=== PATIENT | female | born 1960 | race African-American/Black ===

== ENCOUNTER 2021-05-08 01:59 | Day surgery (SDC) | payer OTHER, SELFPAY ==
[2021-04-20 10:26] VITALS: BMI 36.1
[2021-05-08 07:55] VITALS: BMI 35.9
[2021-05-08] MEDS: LACTATED RINGERS 1,000 ML 150 ML IV CONT (08:03)
[2021-05-08 08:11] VITALS: BP 137/104; PULSE 92; RESP 18; TEMP 36.1; O2SAT 99
--- NOTE | 2021-05-08 08:43 | WPDANESEPPF ---
Anes - Initial Pre Proc Eval Procedure: Operation Date: 05/08/21 09:00 Proposed Procedures p Esophagogastroduodenoscopy & Screening Colonoscopy - Stanisalw Tate MD Date/Time: 05/08/21 08:43 Surgeon: Stanislaw Tate MD Pre Op Diagnosis: hx of colon polyps, dysphagia Patient Data Age: 60 Gender: F Height: 1.63 m Weight: 94.9 kg Last Vital Signs Temp 96.9 F L 05/08/21 08:11 Pulse 92 05/08/21 08:11 Resp 18 05/08/21 08:11 BP 137/104 H 05/08/21 08:11 Pulse Ox 99 05/08/21 08:11 Allergies Allergy/AdvReac Type Severity Reaction Status Date / Time No Known Allergies Allergy Verified 05/08/21 07:47 Home Medications Medication Instructions Recorded Confirmed Type acyclovir 200 mg capsule 800 mg PO DAILY cap 04/06/21 05/08/21 History albuterol sulfate 90 mcg/actuation 1 puff INHALATION Q4H PRN 04/06/21 05/08/21 History aerosol inhaler aspirin 81 mg tablet,delayed 81 mg PO DAILY 04/06/21 05/08/21 History release atorvastatin 10 mg tablet 20 mg PO DAILY tablet 04/06/21 05/08/21 History cholecalciferol (vitamin D3) 10 10 mcg PO DAILY 04/06/21 05/08/21 History mcg (400 unit) capsule hydrochlorothiazide 12.5 mg tablet 25 mg PO DAILY tablet 04/06/21 05/08/21 History ibuprofen 800 mg tablet 800 mg PO Q6H #120 tablet 04/06/21 05/08/21 Rx losartan 25 mg tablet 25 mg PO DAILY 04/06/21 05/08/21 History tumeric 100 mg-torrey 150 mg-olive 1 cap PO DAILY 04/06/21 05/08/21 History 50 mg-oreg 150 mg-caprylate capsule Patient hx anesthesia problems: none Family hx anesthesia problems: none PMFSH Past Medical History Medical History Asthma BMI 36.0-36.9,adult Dysphagia Facial paralysis Facial paralysis on left side Herpes HTN (hypertension) Hyperlipidemia Low back pain Personal history of colonic polyps Seasonal allergies Stroke Tobacco abuse Vitamin D deficiency Surgical History Surgical History History of gallstones 1996 Hx of section 1995 Family History Family History Father No problems noted. Mother No problems noted. Grandparent , Maternal Grandmother Diabetes mellitus Sibling Leukemia Social History Social History Smoking status: Current every day smoker Tobacco type: e-cigarettes/vaping Second hand tobacco smoke exposure: Yes Additional smoking assessment comments: FORMER [employer] Alcohol intake: current Drinks per week: 7 Alcohol use details: socially Substance use: never Substance use type: does not use Living arrangements: with family Gender identity (if verbalized by the patient): Female Spiritual care concerns: No Agree to blood products: No Anes - Eval Final PreProcedure Day of Procedure 05/08/21 08:43 Patient weight: obese Heart: regular rate and rhythm Lungs: clear to auscultation Airway: Mallampati scale class II Neurological: alert and oriented Last oral intake: >/= 8 hours ASA classification: III Emergent: no Anesthetic plan: proceed Anesthesia type and monitoring: general GIVS and standard monitoring Informed Consent: The patient's anesthetic plan and its attendant risks and benefits were discussed with the patient/family/POA. Questions were solicited and answers provided to the satisfaction of the patient/family/POA.
--- NOTE | 2021-05-08 08:58 | PM.HPGS ---
History of Present Illness History of Present Illness Consent: Risks, benefits, and alternatives have been discussed and questions answered. Patient agrees to proceed with procedure. Chief complaint: hx of colon polyps, dysphagia Narrative: Margarita Paredes is a 60 year old female with been having difficulty with swallowing due. Often she will feel as though she is going to choke on taking her pills. She has more difficulty with liquids such as water, she needs to think about it to prevent it from going down the wrong way. She does not have the sensation that food is stuck substernally. This has been going on for several years. 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 She denies weight loss. She has had polyps removed about 15 years ago when she had her 1st screening colonoscopy Review of Systems Review of Systems: All systems reviewed & are unremarkable except as noted in HPI and below PMFSH Past Medical History Medical History Asthma BMI 36.0-36.9,adult Dysphagia Facial paralysis Facial paralysis on left side Herpes HTN (hypertension) Hyperlipidemia Low back pain Personal history of colonic polyps Seasonal allergies Stroke Tobacco abuse Vitamin D deficiency Surgical History Surgical History History of gallstones 1996 Hx of section 1995 Family History Family History Father No problems noted. Mother No problems noted. Grandparent , Maternal Grandmother Diabetes mellitus Sibling Leukemia Social History Social History Smoking status: Current every day smoker Tobacco type: e-cigarettes/vaping Second hand tobacco smoke exposure: Yes Additional smoking assessment comments: FORMER [employer] Alcohol intake: current Drinks per week: 7 Alcohol use details: socially Substance use: never Substance use type: does not use Living arrangements: with family Gender identity (if verbalized by the patient): Female Spiritual care concerns: No Agree to blood products: No Meds Home Medications and Allergies Home Medications Medication Instructions Recorded Confirmed Type acyclovir 200 mg capsule 800 mg PO DAILY cap 04/06/21 05/08/21 History albuterol sulfate 90 mcg/actuation 1 puff INHALATION Q4H PRN 04/06/21 05/08/21 History aerosol inhaler aspirin 81 mg tablet,delayed 81 mg PO DAILY 04/06/21 05/08/21 History release atorvastatin 10 mg tablet 20 mg PO DAILY tablet 04/06/21 05/08/21 History cholecalciferol (vitamin D3) 10 10 mcg PO DAILY 04/06/21 05/08/21 History mcg (400 unit) capsule hydrochlorothiazide 12.5 mg tablet 25 mg PO DAILY tablet 04/06/21 05/08/21 History ibuprofen 800 mg tablet 800 mg PO Q6H #120 tablet 04/06/21 05/08/21 Rx losartan 25 mg tablet 25 mg PO DAILY 04/06/21 05/08/21 History tumeric 100 mg-torrey 150 mg-olive 1 cap PO DAILY 04/06/21 05/08/21 History 50 mg-oreg 150 mg-caprylate capsule Allergies Allergy/AdvReac Type Severity Reaction Status Date / Time No Known Allergies Allergy Verified 05/08/21 07:47 Vital Signs Vital Signs - 24 hr 05/08/21 08:11 Temperature 36.1 C L Pulse Rate 92 Respiratory Rate 18 Blood Pressure 137/104 H Pulse Oximetry 99 Exam Resp: Auscultation: clear to auscultation bilaterally Cardio: Rate: regular rate Rhythm: regular rhythm GI: GI Palp: Yes Soft to palpation and No Tenderness to palpation present (GI) Assessment and Plan Assessment and plan (1) Dysphagia: Code(s): R13.10 - Dysphagia, unspecified Status: Acute Assessment and Plan: EGD with possible biopsy or dilatation or cautery. (2) Colon cancer screening: Code(s): Z12.11 - En
[2021-05-08 09:43] VITALS: BP 120/67; PULSE 86; RESP 22; O2SAT 100
[2021-05-08 09:53] VITALS: BP 116/92; PULSE 93; RESP 28; O2SAT 96
[2021-05-08 10:03] VITALS: BP 134/89; PULSE 82; RESP 25; O2SAT 95
== END 2021-05-08 10:27 | disposition home or self-care (01) ==
PROVIDERS: PCP Nurse Practitioner Family; Visit Provider Internal Medicine Gastroenterology
PROC: 0DJ08ZZ Inspection of Upper Intestinal Tract, Via Natural or Artificial Opening Endoscopic (ICD-10-PCS; CPT 43235; principal; 2021-05-08 09:00)
DX: Z12.11 Encounter for screening for malignant neoplasm of colon (principal); Z86.010 Personal history of colon polyps; K57.30 Diverticulosis of large intestine without perforation or abscess without bleeding; K25.9 Gastric ulcer, unspecified as acute or chronic, without hemorrhage or perforation; K64.8 Other hemorrhoids; R13.12 Dysphagia, oropharyngeal phase; K20.80 Other esophagitis without bleeding; J45.909 Unspecified asthma, uncomplicated; Z86.73 Personal history of transient ischemic attack (TIA), and cerebral infarction without residual deficits; G51.0 Bell's palsy; I10 Essential (primary) hypertension; E78.5 Hyperlipidemia, unspecified; E55.9 Vitamin D deficiency, unspecified; F17.290 Nicotine dependence, other tobacco product, uncomplicated; Z79.82 Long term (current) use of aspirin; R13.10 Dysphagia, unspecified; Z79.51 Long term (current) use of inhaled steroids; E66.8 Other obesity; Z68.35 Body mass index [BMI] 35.0-35.9, adult
CPT/HCPCS: 45378; 43239; 87081; 88305; J2704; J7120

== ENCOUNTER → 2021-07-13 14:54 | Outpatient (CLI) | payer OTHER, SELFPAY ==
--- NOTE | ~2021-07-13 | XR_ITS ---
XR ankle RT 2V DATE: 07/13/2021 15:06 INDICATION: Right ankle and foot pain TECHNIQUE: AP and lateral views COMPARISON: None FINDINGS: Plantar and posterior calcaneal enthesopathy. There is moderate lateral soft tissue swelling of the ankle. No fracture or dislocation of the ankle or disruption of the ankle mortise is detected. No periosteal reaction or bone destruction. IMPRESSION: Lateral ankle soft tissue swelling No fracture or dislocation is detected Plantar and posterior calcaneal enthesopathy Reviewed, dictated and finalized at location A.
== END ==
PROVIDERS: PCP Nurse Practitioner Family; Visit Provider Nurse Practitioner Family
DX: M25.571 Pain in right ankle and joints of right foot (principal); M79.89 Other specified soft tissue disorders; M77.31 Calcaneal spur, right foot
CPT/HCPCS: 73600

== ENCOUNTER 2021-11-27 13:03 | Emergency (ER) | payer OTHER, SELFPAY ==
--- NOTE | ~2021-11-27 | XR_ITS ---
EXAMINATION: XR foot RT min 3V DATE: 11/27/2021 13:50 INDICATION: Right foot pain and ankle swelling. TECHNIQUE: 4 views of right foot were obtained. COMPARISON: None. FINDINGS: There is moderate hallux valgus. No fracture. There is mild osteoarthritis of first metatar sophalangeal joint and some of the midfoot joints and interphalangeal joints. There are periarticular calcifications at fourth distal interphalangeal joint. There are enthesophytes at the posterior and plantar aspects of calcaneal tuberosity. IMPRESSION: 1. Polyarticular osteoarthritis. 2. Moderate hallux valgus. Reviewed, dictated and finalized at location A. ION CONTROL COORDINATOR
--- NOTE | ~2021-11-27 | XR_ITS ---
EXAMINATION: XR ankle RT min 3V DATE: 11/27/2021 13:50 INDICATION: Right foot pain and ankle swelling. TECHNIQUE: 4 views of right ankle were obtained. COMPARISON: None. FINDINGS: Bone alignment is normal. No fracture. There is mild osteoarthritis of the ankle joint and midfoot. There are enthesophytes at the posterior and plantar aspects of calcaneal tuberosity. Ankle soft tissue swelling is noted. IMPRESSION: 1. Polyarticular osteoarthritis. Reviewed, dictated and finalized at location A. RINARY ANATOMIST
--- NOTE | ~2021-11-27 | US_ITS ---
EXAMINATION: US venous doppler LE RT DATE: 11/27/2021 14:03 INDICATION: Right lower limb swelling. TECHNIQUE: Grayscale ultrasound images without and with compression and Doppler ultrasound images of the right lower extremity veins were obtained. COMPARISON: None. FINDINGS: The visualized portions of right common femoral vein, profunda (deep) femoral vein, femoral vein, pop liteal vein, peroneal veins, posterior tibial veins, and greater saphenous vein outflow are patent. IMPRESSION: 1. No deep venous thrombosis. Reviewed, dictated and finalized at location A. ATTENDANT
[2021-11-27 13:06] VITALS: BP 137/89; PULSE 110; RESP 18; TEMP 36.4; O2SAT 100
--- NOTE | 2021-11-27 14:18 | PC.NURSE ---
Pt assisted to bathroom by wheelchair, pt is observed to have difficult and painful ambulation, pt denies using wheelchair or walker as an assitive device but she is needing to use wheelchair at this time.
[2021-11-27 14:30] LABS: Anion Gap 7 mmol/L (8-16); Blood Urea Nitrogen 11 mg/dL (7-17); Calcium 9.6 mg/dL (8.4-10.2); Carbon Dioxide 33 mmol/L (22-30); Chloride 100 mmol/L (98-107); Estimated CRCL calculation 65 ml/min; Estimated Glomerular Filt Rate > 60; Glucose 135 mg/dL (65-110); Potassium 3.3 mmol/L (3.4-5.0); Sodium 140 mmol/L (137-145); Uric Acid 7.8 mg/dL (2.5-7.5)
--- NOTE | 2021-11-27 15:44 | ED.GENADULT ---
HPI - General Adult General Chief complaint: Extremity Problem,Nontraumatic Stated complaint: foot pain Time Seen by Provider: 11/27/21 13:27 History of Present Illness HPI narrative: Patient is a 61-year-old female who presents ER with right foot and ankle pain. Ongoing since 11/16/2021. Has known bunion to the right toe pain and swelling. No redness or drainage. No chest pain or shortness of breath. Has swelling going into her ankle. No known trauma. Pain is worse with walking. Also worse with wearing shoe. Related Data Home Medications Medication Instructions Recorded Confirmed albuterol sulfate 90 mcg/actuation 1 puff INHALATION Q4H PRN 04/06/21 07/13/21 aerosol inhaler aspirin 81 mg tablet,delayed 81 mg PO DAILY 04/06/21 07/13/21 release cholecalciferol (vitamin D3) 10 10 mcg PO DAILY 04/06/21 07/13/21 mcg (400 unit) capsule losartan 25 mg tablet 25 mg PO DAILY 04/06/21 07/13/21 tumeric 100 mg-torrey 150 mg-olive 1 cap PO DAILY 04/06/21 07/13/21 50 mg-oreg 150 mg-caprylate capsule Allergies Allergy/AdvReac Type Severity Reaction Status Date / Time No Known Allergies Allergy Verified 05/08/21 07:47 Review of Systems Review of Systems: All systems reviewed & are unremarkable except as noted in HPI and below Constitutional: Constitutional: Denies chills, Denies fever(s) and Denies weakness Cardiovascular: Cardiovascular: Denies chest pain, Denies rapid heart rate and Denies radiating jaw, neck or arm pain Respiratory: Respiratory: Denies cough and Denies dyspnea Musculoskeletal: Musculoskeletal: Reports arthralgias and Reports joint swelling Integumentary/Breasts: Skin/Breast: Denies pruritus, Denies erythema and Denies rash Neurologic: Denies headache(s), Denies focal weakness and Denies numbness [facility] Past Medical History Medical History (Updated 11/27/21 @ 15:48 by Siva Johnson MD) Asthma BMI 36.0-36.9,adult Dysphagia Edema of right ankle Facial paralysis Facial paralysis on left side Herpes HTN (hypertension) Hyperlipidemia Joint pain Low back pain Personal history of colonic polyps Right ankle pain Seasonal allergies Stroke Tobacco abuse Vitamin D deficiency Surgical History Surgical History History of gallstones 1996 Hx of section 1995 Family History Family History Father No problems noted. Mother No problems noted. Grandparent , Maternal Grandmother Diabetes mellitus Sibling Leukemia Social History Social History Smoking status: Former smoker (currently vaping) Tobacco type: e-cigarettes/vaping Second hand tobacco smoke exposure: Yes Additional smoking assessment comments: FORMER [employer] Alcohol intake: current Drinks per week: 7 Alcohol use details: socially Substance use: never Substance use type: does not use Gender identity (if verbalized by the patient): Female Spiritual care concerns: No Agree to blood products: No Exam Narrative: GENERAL: Well-appearing, well-nourished, and in no acute distress. HEAD: Normocephalic, atraumatic. EXTREMITIES: Tender bunion right foot at the first MTP. No redness or fluctuance. Edema of the foot going into the ankle with tenderness at bilateral malleoli. Negative Homans' sign on the right. 1+ edema on the right. Unremarkable left lower extremity examination. SKIN: Warm, dry, no rash. NEURO: Alert and oriented x3. PSYCH: Normal mood and affect. Course Course Emergency Course: May have had a gout flare that patient is recovering from. No evidence of fracture or DVT. Discharge with anti-inflammatories. [place] as needed for breakthrough pain. Vital Signs Vital signs: Vital Signs Temperature 97.6 F 11/27/21 13:06 Pulse Rate 110 H
[2021-11-27 16:18] VITALS: BP 132/82; PULSE 89; RESP 18; O2SAT 100
== END 2021-11-27 16:21 | disposition home or self-care (01) ==
PROVIDERS: Emergency Provider Emergency Medicine; PCP Nurse Practitioner Family
DX: M20.11 Hallux valgus (acquired), right foot (principal); M21.611 Bunion of right foot; M19.071 Primary osteoarthritis, right ankle and foot; J45.909 Unspecified asthma, uncomplicated; I10 Essential (primary) hypertension; E78.5 Hyperlipidemia, unspecified; Z86.73 Personal history of transient ischemic attack (TIA), and cerebral infarction without residual deficits; E55.9 Vitamin D deficiency, unspecified; Z79.82 Long term (current) use of aspirin; F17.290 Nicotine dependence, other tobacco product, uncomplicated
CPT/HCPCS: 36415; 73610; 73630; 80048; 84550; 93971; 99284

== ENCOUNTER 2022-03-02 08:38 | Outpatient (CLI) | payer OTHER, SELFPAY ==
--- NOTE | ~2022-03-02 | XR_ITS ---
EXAMINATION: XR barium swallow modified DATE: 03/02/2022 09:21 INDICATION: Dysphagia TECHNIQUE: Modified barium esophagram was performed by myself to administered fluoroscopy, in conjun ction with speech pathologist who administered barium in varying consistencies as per speech patholog ist documentation. This was recorded on tape. A single fluoroscopic spot image was recorded. The DAP for this procedure was 2.0 Gycm2. Fluoroscopy exposure time was 1.6 minutes. FINDINGS: Oral stage: Adequate function. Pharyngeal phase: Adequate function. Laryngeal penetration: None. Aspiration: None. Laryngeal sensitivity: Not applicable. IMPRESSION: Unremarkable modified barium swallow. Please refer to speech pathologist findings and spe [facility] feeding recommendations. Reviewed, dictated and finalized at location A. IMPRESSION: Unremarkable modified barium swallow. Please refer to speech pathol ogist findings and specific feeding recommendations.
--- NOTE | 2022-03-03 10:38 | STOPEVAL ---
MODIFIED BARIUM SWALLOW EVALUATION: Thank you for referring Margarita Paredes to [facility] [place] Attending Provider: Stanislwa Tate MD FAX: [phone] Modified Barium Swallow Evaluation Recent Swallowing History Reports Dysphagia Yes: food gets caught in throat & chest but it varies & cuts off air History of Dysphagia No History of Related Medical Diagnosis CVA Other Related History reported CVA during Other Factors Impacting Dysphagia None Reported Difficult Consistencies Solids Intake Method Prior to Swallow Oral Evaluation Diet Prior to Swallow Evaluation Regular, Level 7 Liquid Consistency Prior to Swallow Thin (0) Evaluation Consistency Barium Pill Oral Preparatory Symptoms None Oral Phase Symptoms None Pharyngeal Phase Symptoms None Severity of Vallecular Residue None - 0% No Residue Severity of Pyriform Sinus Residue None - 0% No Residue 8 Point Laryngeal Penetration-Aspiration Material Does Not Enter Airway Scale Cervical/Esophageal Symptoms None Solid Consistency Method of Presentation Spoon Oral Preparatory Symptoms None Oral Phase Symptoms None Pharyngeal Phase Symptoms None Severity of Vallecular Residue None - 0% No Residue Severity of Pyriform Sinus Residue None - 0% No Residue 8 Point Laryngeal Penetration-Aspiration Material Does Not Enter Airway Scale Cervical/Esophageal Symptoms None Pureed Consistency Method of Presentation Spoon Oral Preparatory Symptoms None Oral Phase Symptoms None Pharyngeal Phase Symptoms None Severity of Vallecular Residue None - 0% No Residue Severity of Pyriform Sinus Residue None - 0% No Residue 8 Point Laryngeal Penetration-Aspiration Material Does Not Enter Airway Scale Cervical/Esophageal Symptoms None Thin Uncontrolled 2 Method of Presentation Straw Oral Preparatory Symptoms None Oral Phase Symptoms None Pharyngeal Phase Symptoms None Severity of Vallecular Residue None - 0% No Residue Severity of Pyriform Sinus Residue None - 0% No Residue 8 Point Laryngeal Penetration-Aspiration Material Does Not Enter Airway Scale Cervical/Esophageal Symptoms None Thin Uncontrolled 1 Method of Presentation Cup Oral Preparatory Symptoms None Oral Phase Symptoms None Pharyngeal Phase Symptoms None Severity of Vallecular Residue None - 0% No Residue Severity of Pyriform Sinus Residue None - 0% No Residue 8 Point Laryngeal Penetration-Aspiration Material Does Not Enter Airway Scale Cervical/Esophageal Symptoms None Thin 5 mL Method of Presentation Spoon Oral Preparatory Symptoms None
== END 2022-03-02 08:39 | disposition home or self-care (01) ==
PROVIDERS: PCP Nurse Practitioner Family; Visit Provider Internal Medicine Gastroenterology
DX: R13.10 Dysphagia, unspecified (principal)
CPT/HCPCS: 92611

== ENCOUNTER 2022-04-02 01:24 | Day surgery (SDC) | payer OTHER, SELFPAY ==
[2022-03-15 16:09] VITALS: BMI 36.3
--- NOTE | 2022-04-02 10:55 | PM.HPGS ---
History of Present Illness History of Present Illness Consent: Risks, benefits, and alternatives have been discussed and questions answered. Patient agrees to proceed with procedure. Chief complaint: gastric ulcer Narrative: Margarita Paredes is a 61 year old female Who was found to have multiple cratered gastric ulcers last year. She has been on pantoprazole since then. She is just now coming in for her follow-up EGD to assess healing. she also has had dysphagia but a barium swallow study was negative. she only has difficulty swallowing liquids. She denies using ice in fact always drinks her liquids at room temperature. Review of Systems Review of Systems: All systems reviewed & are unremarkable except as noted in HPI and below PMFSH Past Medical History Medical History Asthma BMI 36.0-36.9,adult BMI 37.0-37.9, adult Dysphagia Edema of right ankle Facial paralysis Facial paralysis on left side Gout Herpes HTN (hypertension) Hyperlipidemia Joint pain Low back pain Personal history of colonic polyps Right ankle pain Seasonal allergies Stroke Tobacco abuse Vitamin D deficiency Surgical History Surgical History History of gallstones 1996 Hx of section 1995 Family History Family History Father No problems noted. Mother No problems noted. Grandparent , Maternal Grandmother Diabetes mellitus Sibling Leukemia Social History Social History Smoking status: Current every day smoker Tobacco type: cigarettes and e-cigarettes/vaping Second hand tobacco smoke exposure: Yes Additional smoking assessment comments: FORMER [employer] Alcohol intake: current Drinks per week: 7 Alcohol use details: socially Substance use: never Substance use type: does not use Living arrangements: with family Gender identity (if verbalized by the patient): Female Spiritual care concerns: No Agree to blood products: No Meds Home Medications and Allergies Home Medications Medication Instructions Recorded Confirmed Type albuterol sulfate 90 mcg/actuation 1 puff inhalation Q4H PRN 04/06/21 03/16/22 History aerosol inhaler Shortness Of Breath cholecalciferol (vitamin D3) 10 10 mcg PO DAILY 04/06/21 03/16/22 History mcg (400 unit) capsule ibuprofen 800 mg tablet 800 mg PO Q6H #120 tabs 04/06/21 03/16/22 Rx loratadine 10 mg tablet 10 mg PO DAILY #30 tabs 09/14/21 03/16/22 Rx atorvastatin 20 mg tablet 20 mg PO DAILY #30 tabs 09/15/21 03/16/22 Rx acyclovir 400 mg tablet 400 mg PO BID #60 tabs 11/09/21 03/16/22 Rx hydrocodone 5 mg-acetaminophen 325 1 tablet PO Q6H PRN pain #10 tabs 11/27/21 03/16/22 Rx mg tablet allopurinol 100 mg tablet 100 mg PO DAILY #30 tabs 12/14/21 03/16/22 Rx colchicine 0.6 mg tablet See Rx Instructions .Route 12/14/21 03/16/22 Rx .COMPLEX PRN gout flare #60 tabs losartan 25 mg tablet 25 mg PO DAILY #30 tabs 12/14/21 03/16/22 Rx pantoprazole 40 mg tablet,delayed See Rx Instructions .Route 02/23/22 03/16/22 Rx release .COMPLEX #30 tabs Allergies Allergy/AdvReac Type Severity Reaction Status Date / Time No Known Allergies Allergy Verified 04/02/22 11:45 Exam Const: General: alert Orientation/consciousness: patient oriented x3 Resp: Auscultation: clear to auscultation bilaterally Cardio: Rhythm: regular rhythm GI: GI Palp: Yes Soft to palpation and No Tenderness to palpation present (GI) Neuro: General: patient oriented x3 Assessment and Plan Assessment and plan (1) Gastric ulcer: Code(s): K25.9 - Gastric ulcer, unspecified as acute or chronic, without hemorrhage or perforation Status: Acute Assessment and Plan: EGD with possible biopsy or dilata
[2022-04-02 11:47] VITALS: BP 137/95; PULSE 108; RESP 18; TEMP 36.2; O2SAT 97
--- NOTE | 2022-04-02 11:56 | WPDANESEPPF ---
Anes - Initial Pre Proc Eval Procedure: Operation Date: 04/02/22 13:00 Proposed Procedures p Esophagogastroduodenoscopy - Stanislaw Tate MD Date/Time: 04/02/22 11:56 Surgeon: Stanislaw Tate MD Pre Op Diagnosis: gastric ulcer Patient Data Age: 61 Gender: F Height: 1.63 m Weight: 97.4 kg Last Vital Signs Temp 97.2 F L 04/02/22 11:47 Pulse 108 H 04/02/22 11:47 Resp 18 04/02/22 11:47 BP 137/95 H 04/02/22 11:47 Pulse Ox 97 04/02/22 11:47 O2 Del Method Room Air 04/02/22 11:47 Allergies Allergy/AdvReac Type Severity Reaction Status Date / Time No Known Allergies Allergy Verified 04/02/22 11:45 Home Medications Medication Instructions Recorded Confirmed Type albuterol sulfate 90 mcg/actuation 1 puff inhalation Q4H PRN 04/06/21 03/16/22 History aerosol inhaler Shortness Of Breath cholecalciferol (vitamin D3) 10 10 mcg PO DAILY 04/06/21 03/16/22 History mcg (400 unit) capsule ibuprofen 800 mg tablet 800 mg PO Q6H #120 tabs 04/06/21 03/16/22 Rx loratadine 10 mg tablet 10 mg PO DAILY #30 tabs 09/14/21 03/16/22 Rx atorvastatin 20 mg tablet 20 mg PO DAILY #30 tabs 09/15/21 03/16/22 Rx acyclovir 400 mg tablet 400 mg PO BID #60 tabs 11/09/21 03/16/22 Rx hydrocodone 5 mg-acetaminophen 325 1 tablet PO Q6H PRN pain #10 tabs 11/27/21 03/16/22 Rx mg tablet allopurinol 100 mg tablet 100 mg PO DAILY #30 tabs 12/14/21 03/16/22 Rx colchicine 0.6 mg tablet See Rx Instructions .Route 12/14/21 03/16/22 Rx .COMPLEX PRN gout flare #60 tabs losartan 25 mg tablet 25 mg PO DAILY #30 tabs 12/14/21 03/16/22 Rx pantoprazole 40 mg tablet,delayed See Rx Instructions .Route 02/23/22 03/16/22 Rx release .COMPLEX #30 tabs Patient hx anesthesia problems: none Family hx anesthesia problems: none Results Review: All pre-operative results and documents have been reviewed as part of the pre-operative evaluation. [facility] Past Medical History Medical History Asthma BMI 36.0-36.9,adult BMI 37.0-37.9, adult Dysphagia Edema of right ankle Facial paralysis Facial paralysis on left side Gout Herpes HTN (hypertension) Hyperlipidemia Joint pain Low back pain Personal history of colonic polyps Right ankle pain Seasonal allergies Stroke Tobacco abuse Vitamin D deficiency Surgical History Surgical History History of gallstones 1996 Hx of section 1995 Family History Family History Father No problems noted. Mother No problems noted. Grandparent , Maternal Grandmother Diabetes mellitus Sibling Leukemia Social History Social History Smoking status: Current every day smoker Tobacco type: cigarettes and e-cigarettes/vaping Second hand tobacco smoke exposure: Yes Additional smoking assessment comments: FORMER [employer] Alcohol intake: current Drinks per week: 7 Alcohol use details: socially Substance use: never Substance use type: does not use Living arrangements: with family Gender identity (if verbalized by the patient): Female Spiritual care concerns: No Agree to blood products: No Anes - Eval Final PreProcedure Day of Procedure 04/02/22 11:56 Patient weight: obese Heart: regular rate and rhythm Lungs: clear to auscultation Neurological: alert and oriented Last oral intake: >/= 8 hours Emergent: no Anesthetic plan: proceed Anesthesia type and monitoring: general and standard monitoring Results Review: All pre-operative results and documents have been reviewed as part of the pre-operative evaluation. Informed Consent: The patient's anesthetic plan and its attendant risks and benefits were discussed with the patient/family/POA. Questions were solicited and answers pr
[2022-04-02 11:58] LABS: Glucose Point of Care 116 mg/dl (65-105)
[2022-04-02] MEDS: LACTATED RINGERS 1,000 ML 150 ML IV CONT (11:59)
[2022-04-02 12:11] VITALS: BP 131/90; PULSE 95; RESP 21; O2SAT 99
[2022-04-02 12:21] VITALS: BP 131/95; PULSE 88; RESP 25; O2SAT 100
[2022-04-02 12:31] VITALS: BP 138/97; PULSE 86; RESP 27; O2SAT 98
== END 2022-04-02 12:38 | disposition home or self-care (01) ==
PROVIDERS: PCP Nurse Practitioner Family; Visit Provider Internal Medicine Gastroenterology
PROC: 0DJ08ZZ Inspection of Upper Intestinal Tract, Via Natural or Artificial Opening Endoscopic (ICD-10-PCS; CPT 43235; principal; 2022-04-02 13:00)
DX: Z09 Encounter for follow-up examination after completed treatment for conditions other than malignant neoplasm (principal); Z87.11 Personal history of peptic ulcer disease; K21.9 Gastro-esophageal reflux disease without esophagitis; Z87.898 Personal history of other specified conditions; I10 Essential (primary) hypertension; J45.909 Unspecified asthma, uncomplicated; R13.10 Dysphagia, unspecified; R60.0 Localized edema; M10.9 Gout, unspecified; E55.9 Vitamin D deficiency, unspecified; E78.5 Hyperlipidemia, unspecified; Z86.73 Personal history of transient ischemic attack (TIA), and cerebral infarction without residual deficits; F17.290 Nicotine dependence, other tobacco product, uncomplicated; E66.9 Obesity, unspecified; Z68.36 Body mass index [BMI] 36.0-36.9, adult; Z79.51 Long term (current) use of inhaled steroids
CPT/HCPCS: 43235; 82948; J2704; J7120

== ENCOUNTER 2022-05-14 07:26 | Outpatient (CLI) | payer OTHER, SELFPAY ==
--- NOTE | 2022-06-05 23:49 | WPDHOMESLEEP ---
Sleep Study - Home Unattended Date of Study: 05/14/22 Ordering Provider: Bee Pratt NP Interpreting Provider: Tammie Zavala, DO Home Sleep Study Type: Watch PAT Height: 1.63 m Weight: 98.883 kg Body Mass Index: 37.4 Neck Circumference (inches): 16 [place]: 2 Reason for Sleep Study Snoring Sleep History The patient is a 61-year-old female with hypertension, hyperlipidemia, gout, seasonal allergies, history of stroke (1987) and history of tobacco abuse that had a sleep study ordered by her primary care for evaluation of sleep apnea. 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 The patient denies awakening from sleep short of breath. She denies awakening at night with heartburn, belching or cough. She constantly snores loud enough that others complain. She occasionally has trouble sleeping when she has a cold. She denies having breathing problems at night observed by herself or others. She occasionally sweats excessively at night. She denies having heart palpitations or irregular heartbeats during the night. She denies falling asleep during the day and while driving. She denies sleep paralysis, cataplexy and hypnagogic / hypnopompic hallucinations. She denies having trouble at school or work due to sleepiness. She rarely feels afraid of going to sleep. She rarely has nightmares. She occasionally remembers her dreams. She denies having thoughts racing through her mind. she denies feeling sad or depressed. She rarely has anxiety. She denies having muscular tension. She rarely notices parts of her body jerk. She denies kicking during the night. She denies having crawling and aching feelings in her legs as well as leg pain during the night. She denies grinding her teeth during sleep and awakening with morning jaw pain. She denies being awakened by pain during the night. She denies waking up feeling stiff in the morning. She denies waking up with sore achy muscles. She rarely wakes up with pain in the neck, spine or other joints. The patient goes to bed between midnight to 1:00 a.m. on weekdays and whenever she feels sleepy on the weekends. It takes her 5-10 minutes to fall asleep. She wakes up 2-3 times throughout the night to urinate. She is able to fall back asleep within 3-5 minutes. She wakes up between 7-8 a.m. on the weekdays and between 8-10 a.m. on the weekends. She typically gets 6 hours of sleep per night. She will stay in bed and watch television after waking up in the morning on the weekends. She currently lives with her adult children. She does not consume any caffeinated beverages within 2 hours of bedtime. She does not engage in physical exercise before bedtime. She will read and watch television before falling asleep. She does not take any naps in the afternoon or the evening. She is a former smoker. She has 7 alcoholic beverages per week. She denies recreational drug use. [facility] Past Medical History Medical History Asthma BMI 36.0-36.9,adult BMI 37.0-37.9, adult Diabetes type 2, controlled Dysphagia Edema of right ankle Elevated liver enzymes Facial paralysis Facial paralysis on left side Gout Herpes HTN (hypertension) Hyperlipidemia Joint pain Low back pain Personal history of colonic polyps Right ankle pain Seasonal allergies Snoring Stroke Tobacco abuse Vitamin D deficiency Surgical History Surgical History History of gallstones 1996 Hx of section 1995 Family History Family History Father No problems noted. Mother No problems noted. Grandparent , Maternal Grandmother Diabetes mellitus Sibling Leukemia Social History Social History Smoking status: Current every day smoker To
[2022-06-05 23:52] VITALS: BMI 37.4
--- NOTE | 2022-12-31 09:54 | SLEEP ---
new calls [id number]
== END 2022-05-17 11:31 | disposition home or self-care (01) ==
LOC: ANHCSM 07:28
PROVIDERS: PCP Nurse Practitioner Family; Visit Provider Nurse Practitioner Family
DX: G47.33 Obstructive sleep apnea (adult) (pediatric) (principal)
CPT/HCPCS: 95800

== ENCOUNTER 2022-06-21 13:49 | Outpatient (CLI) | payer OTHER, SELFPAY ==
--- NOTE | 2022-06-21 13:57 | ECHO_ITS ---
Patient Info Name: Margarita Paredes Age: 62 years : 1960 Gender: Female Ht: 64 in Wt: 218 lbs BSA: 2.16 m2 HR: 87 bpm BP: 145 / 108 mmHg Technical Quality: Fair Exam Date: 06/21/2022 2:13 PM Exam Location: [facility] Patient Status: Outpatient Admit Date: 06/21/2022 Staff Ordering Physician: Bee Pratt NP Rating Officer: Hilaria Elliott RDCS Attending Provider: Bee Pratt NP Exam Type: CA echo doppler color flow Study Info Indications G47.31 - PRIMARY CENTRAL SLEEP APNEA Complete two-dimensional, color flow and Doppler transthoracic echocardiogram is performed. Summary 1. Complete two-dimensional, color flow and Doppler transthoracic echocardiogram is performed. 2. Left ventricular chamber dimension is normal. 3. Left ventricular systolic function is normal, estimated at 60-65%. 4. The left ventricular diastolic function is grade I diastolic dysfunction. 5. E/e' 9 is minimally elevated. Left Ventricle E/e' 9 is minimally elevated. Left ventricular chamber dimension is normal. Left ventricular systolic function is normal, estimated at 60-65%. The left ventricular diastolic function is grade I diastolic dysfunction. Right Ventricle Right ventricular chamber dimension is normal. Right ventricular systolic function is normal. Left Atria Left atrial chamber dimension is normal. Right Atria Right atrial chamber dimension is normal. Aortic Valve The aortic valve is trileaflet. There is no aortic valve stenosis. There is no aortic valve regurgitation. Pulmonic Valve There is no pulmonic regurgitation. Mitral Valve There is no mitral valve stenosis. There is no mitral valve regurgitation. Tricuspid Valve There is no tricuspid valve regurgitation. Pericardium/Pleural There is no pericardial effusion. Inferior Vena Cava Normal inferior vena cava with >50% collapse upon inspiration consistent with normal right atrial pressure, 5 mmHg. Aorta The aortic root size at the sinus of Valsalva is normal. Left Ventricular Outflow Tract Name Value Normal LVOT 2D LVOT Diameter 2.0 cm LVOT Doppler LVOT Peak Gradient 4 mmHg LVOT Mean Gradient 2 mmHg LVOT VTI 16 cm LVOT VTI/AV VTI Ratio 0.8 LVOT Stroke Volume 50 ml LVOT CO 4.1 l/min LVOT CI 1.9 l/min/m2 Pulmonic Valve Name Value Normal RVOT Doppler RVOT Peak Gradient 2 mmHg PV Doppler PV Peak Gradient 3 mmHg Mitral Valve Name Value
== END 2022-06-21 13:50 | disposition home or self-care (01) ==
PROVIDERS: PCP Nurse Practitioner Family; Visit Provider Nurse Practitioner Family
DX: G47.31 Primary central sleep apnea (principal); I10 Essential (primary) hypertension
CPT/HCPCS: 93306

== ENCOUNTER 2022-06-24 08:25 | Outpatient (CLI) | payer OTHER, SELFPAY ==
--- NOTE | 2022-07-26 18:34 | WPDSLEEPSTUD ---
Sleep Study Date of Study: 06/24/22 Ordering Provider: Bee Pratt NP Interpreting Physician: Shauna Anton MD Sleep Study Type: CPAP Titration Height: 1.61 m Weight: 98.43 kg Body Mass Index: 37.8 Neck Circumference (inches): 16 [employer]: 2 Reason for Sleep Study The patient is here for a CPAP titration. She had a home sleep test using WatchtPat on 05/14/2022 showing AHI 59.4, central apnea index of 21.4, desaturation down to 75% 11.7% of sleep time with Curtis-Worrell respirations. Sleep History Margarita Paredes is a 62-year-old female with hypertension, hyperlipidemia, gout, seasonal allergies, history of stroke (1987) and history of tobacco abuse who had a WatchPat home sleep test 05/14/2022 showing severe obstructive sleep apnea with an AHI that had a sleep study ordered by her primary care for evaluation of sleep apnea.? 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 The patient denies awakening from sleep short of breath.? She denies awakening at night with heartburn, belching or cough.? She constantly snores loud enough that others complain.? She occasionally has trouble sleeping when she has a cold.? She denies having breathing problems at night observed by herself or others.? She occasionally sweats excessively at night.? She denies having heart palpitations or irregular heartbeats during the night.? She denies falling asleep during the day and while driving.? She denies sleep paralysis, cataplexy and hypnagogic / hypnopompic hallucinations.? She denies having trouble at school or work due to sleepiness.? She rarely feels afraid of going to sleep.? She rarely has nightmares.? She occasionally remembers her dreams.? She denies having thoughts racing through her mind. she denies feeling sad or depressed.? She rarely has anxiety.? She denies having muscular tension.? She rarely notices parts of her body jerk.? She denies kicking during the night.? She denies having crawling and aching feelings in her legs as well as leg pain during the night.? She denies grinding her teeth during sleep and awakening with morning jaw pain.? She denies being awakened by pain during the night.? She denies waking up feeling stiff in the morning.? She denies waking up with sore achy muscles.? She rarely wakes up with pain in the neck, spine or other joints.? Normal bedtime is between midnight to 1:00 a.m., taking 5-10 minutes to fall asleep.? She wakes up 2-3 times throughout the night to urinate.? She is able to fall back asleep within 3-5 minutes.? She wakes up between 7-8 a.m. on the weekdays and between 8-10 a.m. on the weekends.? She typically gets 6 hours of sleep per night.? She will stay in bed and watch television after waking up in the morning on the weekends.? She currently lives with her adult children.?She will read and watch television before falling asleep.? She does not take any naps in the afternoon or the evening.? Habits: She is a former smoker.? She has 7 alcoholic beverages per week.? She denies recreational drug use. [facility] Past Medical History Medical History Asthma BMI 36.0-36.9,adult BMI 37.0-37.9, adult Diabetes type 2, controlled Dysphagia Edema of right ankle Elevated liver enzymes Facial paralysis Facial paralysis on left side Gout Herpes HTN (hypertension) Hyperlipidemia Joint pain Low back pain Personal history of colonic polyps Right ankle pain Seasonal allergies Snoring Stroke Tobacco abuse Vitamin D deficiency Surgical History Surgical History History of gallstones 1996 Hx of section 1995 Family History Family History Father No problems noted. Mother No problems noted. Grandparent , Maternal Grandmother Diabetes mellitus Sibling Leukemia Social History Social History (Reviewed 07/02
[2022-07-26 20:55] VITALS: BMI 37.8
--- NOTE | 2022-09-27 14:24 | SLEEP ---
pt phoned back stating that she is not doing well with pap therapy she is not using some nights. I educated pt on sleep apnea and health issues. she is going to try again tonight.
--- NOTE | 2022-10-19 11:40 | SLEEP ---
pt is not doing well with device i spoke with her about continued usage.
== END 2022-06-25 06:44 | disposition home or self-care (01) ==
LOC: ANHCSM 08:40
PROVIDERS: PCP Nurse Practitioner Family; Visit Provider Nurse Practitioner Family
DX: G47.33 Obstructive sleep apnea (adult) (pediatric) (principal)
CPT/HCPCS: 95811

== ENCOUNTER 2023-05-12 08:25 | Outpatient (RCR) | payer OTHER, SELFPAY ==
[2023-05-12 09:25] VITALS: BMI 38.5
[2023-05-12 10:20] VITALS: BMI 38.5
== END 2023-07-27 09:41 | disposition home or self-care (01) ==
LOC: ANHDMC 08:25
PROVIDERS: PCP Nurse Practitioner Family; Visit Provider Nurse Practitioner Family
DX: E11.9 Type 2 diabetes mellitus without complications (principal); Z71.3 Dietary counseling and surveillance; Z71.89 Other specified counseling
CPT/HCPCS: 97802; G0108

== ENCOUNTER → 2023-08-22 14:51 | Outpatient (CLI) | payer OTHER, SELFPAY ==
--- NOTE | ~2023-08-22 | XR_ITS ---
Thoracic spine: Clinical Indication: Back pain AP and lateral views were performed. No fracture is seen. There is normal alignment of the vertebrae. The intervertebral disc spaces appe ar normal. Paravertebral soft tissues appear normal. Impression: No significant abnormalities noted. Reviewed, dictated and finalized at [facility]. Impression: No significant abnormalities noted.
== END ==
PROVIDERS: PCP Family Medicine; Visit Provider Nurse Practitioner Family
DX: M54.9 Dorsalgia, unspecified (principal)
CPT/HCPCS: 72070

== ENCOUNTER 2025-06-25 18:54 | Emergency (ER) | payer OTHER, SELFPAY ==
--- NOTE | ~2025-06-25 | XR_ITS ---
EXAMINATION: XR foot LT min 3V DATE: 06/25/2025 19:25 INDICATION: Lateral left foot pain post fall TECHNIQUE: Dorsoplantar, two oblique and lateral views of the left foot were obtained. COMPARISON: None. FINDINGS: Minimal distraction of an intra-articular likely avulsion fracture involving the lateral base of the fifth metatarsal. No significant fracture gap or incongruity at the articular cortex. No other fractures identified. Polyarticular osteoarthritis, moderate severity at the first tarsal metatarsal joint and at the second and third tarsal metatarsal joints and mild at several remaining joints the midfoot and multiple interphalangeal joints. Bunion with hypertrophic changes and small heterotopic ossicle at the medial head of the first metatarsal. Small Achilles and plantar calcaneal spurs. IMPRESSION: 1. Minimally displaced intra-articular fracture at the lateral base of the left fifth metatarsal. Reviewed, dictated and finalized at location A.
[2025-06-25 19:12] VITALS: BP 133/88; PULSE 76; RESP 16; TEMP 36.4; O2SAT 98
--- NOTE | 2025-06-25 19:13 | ED.LOWEXIN ---
HPI - Extremity Injury (Lower) General Chief Complaint: Extremity Injury, Lower Stated Complaint: L Foot Pain Time Seen by Provider: 06/25/25 19:15 Source: patient Mode of arrival: ambulatory Limitations: no limitations History of Present Illness HPI Narrative: Margarita is a 65-year-old female patient presenting to the clinic today with complaints of left lateral foot pain after falling on June 15. Reports she fell down when she had EtOH on board on her birthday and injured her left foot. Has pain and swelling to the left lateral foot. Pain with movement over her 5th metatarsal with movement of her 5th toe. Related Data Home Medications ?Medication ?Instructions ?Recorded ?Confirmed ?Last Taken ?Type acyclovir 800 mg tablet mg 06/25/25 Unknown History Allergies Allergy/AdvReac Type Severity Reaction Status Date / Time No Known Allergies Allergy Verified 06/25/25 19:06 Review of Systems Review of Systems: Pertinent positives per HPI. Patient denies any fever, chills, rash, headache, visual changes, dizziness, cough, runny nose, sore throat, shortness of breath, chest pain, palpitations, nausea, vomiting, diarrhea, constipation, abdominal pain, or any urinary issues. [facility] Past Medical History Medical History BMI 34.0-34.9,adult BMI over 35 Exposure to mold Upper back pain Diabetes mellitus BMI 38.0-38.9,adult Screening for diabetic retinopathy (09/02/22) no diabetic retinopathy on 09/02/2022. No retinopathy 05/12/2024. Snoring Diabetes type 2, controlled Elevated liver enzymes BMI 37.0-37.9, adult Gout Edema of right ankle Joint pain Right ankle pain Herpes Facial paralysis on left side Facial paralysis Low back pain Personal history of colonic polyps Dysphagia Tobacco abuse BMI 36.0-36.9,adult Vitamin D deficiency Hyperlipidemia HTN (hypertension) Stroke Asthma Seasonal allergies Surgical History Surgical History History of gallstones 1996 Hx of section 1995 Family History Family History Father No problems noted. Mother No problems noted. Grandparent , Maternal Grandmother Diabetes mellitus Sibling Leukemia Social History Social History Smoking status: Former smoker Tobacco type: e-cigarettes/vaping Second hand tobacco smoke exposure: Yes Additional smoking assessment comments: FORMER CIGARET[employer] SMOKER Alcohol intake: current Alcohol use details: Socially Substance use: never Substance use type: does not use Lack of Transportation: No Lack of Food: Never True Current Housing: I Have Housing Concerned About Future Housing: No Difficulty Paying Gas/Electric Bills: No Difficulty Paying for Meds: No Currently Unemployed: No Education: Master's Degree or Higher Difficulty w/ Childcare or Family Care: No Living arrangements: with family Gender identity (if verbalized by the patient): Female Spiritual care concerns: No Agree to blood products: No Comments At the time of my signature, I reviewed and agree with the nursing past medical, surgical, social, and family history. There is no relevant family history pertinent to the patient complaint. Exam Narrative: General: Well-developed, well nourished, in no apparent distress Head: Normocephalic, atraumatic. Cardio: Regular rate and rhythm, s1 and s2 normal, no murmur appreciated. Resp: Clear to auscultation bilaterally, no rhonchi, rales, wheezing or rubs. Musculoskeletal: No deformity, tender to palpation over the left 5th metatarsal, pain with flexion and extension of the left 5th toe over the 5th metatarsal, grossly normal range of motion, muscle strength strong and equal, peripheral pulse strong, no edema, no cyanosis, normal gait and station Course Course Emergency Course: Portions of this record may have been created with voice recognition software. Level of Care: Express Care Visit Vital Signs Vital signs: Vital Signs Temperature 36.4 C 06/25/25 19:12 Pulse Rate 76 06/25/25 19:12 Respiratory Rate 16 06/25/25 19:12 Blood Pressure 133/88 06/25/25 19:12 Pulse Oximetry 98 06/25/25 19:12 Temperature 36.4 C 06/25/25 19:12 Pulse Rate 76 06/25/25 19:12 Respiratory Rate 16 06/25/25 19:12 Blood Pressure 133/88 06/25/25 19:12 Pulse Oximetry 98 06/25/25 19:12 Vital signs reviewed MDM - Extremity Injury (Lower) MDM Narrative Medical decision making narrative: At the time of visit patient is resting comfortably on the exam table. Patient appears to be nontoxic.complaints of left lateral foot pain after falling on June 15. Reports she fell down when she had EtOH on board on her birthday and injured her left foot. Has pain and swelling to the left lateral foot. Pain with movement over her 5th metatarsal with movement of her 5th toe. X-ray of the left foot was ordered. Diagnostics: Left foot x-ray was performed and shows a left 5th proximal minimally displaced metatarsal fracture Plan: Patient has metatarsal fracture. Postop shoe and Jack wrap was applied. Sensation, motion, and circulation within normal limits after application of the Jack wrap. Referral to Ortho given-Dr. Duvall or she may follow up with another ortho over patient safety manager of her choosing. Supportive measures were discussed with the patient and they voiced understanding discharge instructions and agrees to treatment plan. Return precautions reviewed Differential Diagnosis Differential diagnosis: Likely fracture of toe and other (Metatarsal fracture, foot sprain, foot contusion) Imaging Data Radiologist's impression: ITS Impressions Foot X-Ray 06/25/25 19:34 IMPRESSION: 1. Minimally displaced intra-articular fracture at the lateral base of the left fifth metatarsal. Discharge Plan Discharge Clinical Impression: Metatarsal bone fracture Qualifiers: Encounter type: initial encounter Metatarsal bone: fifth Fracture type: closed Fracture alignment: displaced Laterality: left Qualified Code(s): S92.352A - Displaced fracture of fifth metatarsal bone, left foot, initial encounter for closed fracture Patient Disposition: Home Condition: Stable Instructions: Antibiotic Form, Foot Fracture in Adults (ED) Additional Instructions: X-ray shows a closed minimally displaced left 5th proximal metatarsal fracture Rest, ice, elevate, wear Jack wrap, and postop shoe as directed Tylenol/motrin for pain as discussed. Gradually bear weight No running or sports until healed. Follow up with your PCP if symptoms persist more than 1 week. May follow-up with orthopedic doctor-Dr. Duvall-call office tomorrow to schedule appointment Patient Language: Romansh Prescriptions: No Action acyclovir 800 mg tablet atorvastatin [Lipitor] 10 mg tablet 10 mg PO DAILY Qty: 30 11RF irbesartan 300 mg tablet 300 mg PO DAILY Qty: 30 11RF levocetirizine [Xyzal] 5 mg tablet 5 mg PO DAILY Qty: 30 11RF fluticasone propionate [Flonase Allergy Relief] 50 mcg/actuation spray,suspension 1 spray intranasal BID Qty: 16 11RF Rx Instructions: administer into each nostril (DME) blood-glucose meter [Accu-Chek Guide Me Glucose Mtr] Misc See Rx Instructions .Route Qty: 1 0RF Rx Instructions: As directed once daily (DME) Accu-Chek Guide test strips Strip See Rx Instructions .Route Qty: 100 0RF Rx Instructions: check blood sugar once daily as directed (DME) lancets [Accu-Chek Fastclix Lancet Drum] Misc See Rx Instructions .Route Qty: 100 0RF Rx Instructions: use once daily to check blood sugar allopurinol 100 mg tablet 200 mg PO DAILY Qty: 60 11RF atorvastatin 20 mg tablet 20 mg PO DAILY Qty: 30 11RF cholecalciferol (vitamin D3) 25 mcg (1,000 unit) tablet 25 mcg PO DAILY Qty: 30 11RF loratadine 10 mg tablet 10 mg PO DAILY Qty: 30 11RF semaglutide 1 mg/dose (4 mg/3 mL) pen injector 1 mg subcut WEEKLY Qty: 3 11RF Follow-up/Referrals: Bee Pratt NP [Primary Care Provider, Family Practice] Oscar Duvall MD [Physician, Orthopedics] - 1 Day Referral Note: Closed minimally displaced left 5th proximal metatarsal fracture Clinical Impression: Metatarsal bone fracture Time of Disposition: 19:35 Quality NIHSS Nursing Documentation ED NIHSS nursing documentation: reviewed/agree
== END 2025-06-25 19:45 | disposition home or self-care (01) ==
PROVIDERS: Emergency Provider Nurse Practitioner Family; PCP Nurse Practitioner Family
DX: S92.352A Displaced fracture of fifth metatarsal bone, left foot, initial encounter for closed fracture (principal); W18.30XA Fall on same level, unspecified, initial encounter; E11.9 Type 2 diabetes mellitus without complications; M10.9 Gout, unspecified; E55.9 Vitamin D deficiency, unspecified; E78.5 Hyperlipidemia, unspecified; I10 Essential (primary) hypertension; J45.909 Unspecified asthma, uncomplicated; Z87.891 Personal history of nicotine dependence
CPT/HCPCS: 73630; 99214; G0463